=== PATIENT | female | born 1960 | race Caucasian/White ===

== ENCOUNTER 2024-08-23 11:12 | Observation (INO) | payer BC ==
--- NOTE | 2024-08-23 11:54 | ED ---
General Adult HPI - General Chief complaint: Chest Pain Stated complaint: SOB, lightheaded Time Seen by Provider: 08/23/24 11:15 Source: patient, RN notes reviewed, old records reviewed Mode of arrival: wheelchair Limitations: no limitations - History of Present Illness Initial comments: This is a 63-year-old female who presents to the emergency department complaining of chest pain when she was working outside with her . Patient states she was exerting herself quite a bit. Patient states she started experiencing chest pressure and shortness of breath. Patient states she felt lightheaded at 1 point and lay down. Patient states once it subsided she started working hard again trying to get a tree trunk out of the ground. Patient states that this point her chest pain returned as did the shortness of breath. Patient states currently the chest pressure is minimal but it is still there. Patient currently denies any shortness of breath. Patient denies any history of heart disease. Patient denies diabetes. Patient does have high bl ood pressure and high cholesterol. Patient also has a strong family history of heart disease. - Related Data Home Medications Medication Instructions Recorded Confirmed Aspirin EC [Ecotrin Low Dose] 81 mg PO DAILY 08/23/24 08/23/24 Hydroxychloroquine Sulfate 400 mg PO DAILY 08/23/24 08/23/24 [Plaquenil] Levothyroxine (Unknown Dose) 1 tab PO DAILY 08/23/24 08/23/24 Multivitamins, Thera [Multivitamin 1 tab PO HS 08/23/24 08/23/24 (formulary)] Rosuvastatin [Crestor] 10 mg PO HS 08/23/24 08/23/24 hydroCHLOROthiazide [Hydrodiuril] 12.5 mg PO DAILY 08/23/24 08/23/24 ramipriL [Altace] 10 mg PO DAILY 08/23/24 08/23/24 Allergies Allergy/AdvReac Type Severity Reaction Status Date / Time Iodinated Contrast Media Allergy Anaphylaxis Verified 08/23/24 13:23 Sulfa (Sulfonamide Allergy Anaphylaxis Verified 08/23/24 13:23 Antibiotics) sulfamethoxazole Allergy Rash/Hives Verified 08/23/24 13:23 [From Bactrim] trimethoprim [From Bactrim] Allergy Rash/Hives Verified 08/23/24 13:23 Review of Systems ROS Statement: Those systems with pertinent positive or pertinent negative responses have been documented in the HPI. ROS Other: All systems not noted in ROS Statement are negative. Past Medical History Past Medical History: Hypertension, Rheumatoid Arthritis (RA), Thyroid Disorder History of Any Multi-Drug Resistant Organisms: None Reported Past Surgical History: Appendectomy, Hernia Repair Past Psychological History: No Psychological Hx Reported Smoking Status: Never smoker Past Alcohol Use History: None Reported Past Drug Use History: None Reported General Exam - General Exam Comments Initial Comments: GENERAL: Patient is well-developed and well-nourished. Patient is nontoxic and well- hydrated and is in mild distress. ENT: Neck is soft and supple. No significant lymphadenopathy is noted. Oropharynx is clear. Moist mucous membranes. Neck has full range of motion without eliciting any pain. EYES: The sclera were anicteric and conjunctiva were pink and moist. Extraocular movements were intact and pupils were equal round and reactive to light. Eyelids were unremarkable. PULMONARY: Unlabored respirations. Good breath sounds bilaterally. No audible rales rhonchi or wheezing was noted. CARDIOVASCULAR: There is a regular rate and rhythm without any murmurs gallops or rubs. ABDOMEN: Soft and nontender with normal bowel sounds. SKIN: Skin is clear with no lesions or rashes and otherwise unremarkable. NEUROLOGIC: Patient is alert and oriented x3. Cranial nerves II through XII are grossly intact. Motor and sensory are also intact. Normal speech, volume and content. Symmetrical smile. MUSCULOSKELETAL: Normal extremities with adequate strength and full range of motion. No lower extremity swelling or edema. No calf tenderness. LYMPHATICS: No significant lymphadenopathy is noted PSYCHIATRIC: Normal psychiatric evaluation. Limitations: no limitations Course Vital Signs 08/23/24 08/23/24 08/23/24 11:14 11:34 12:45 Temperature 97.9 F Pulse Rate 101 H 95 90 Respiratory 18 16 16 Rate Blood Pressure 114/69 118/88 123/60 O2 Sat by Pulse 100 99 98 Oximetry Medical Decision Making - Medical Decision Making EKG is interpreted by myself. EKG shows a sinus rhythm at 94 bpm HI interval is 163 QRS is 101 QT interval is 362 QTc is 414. Patient's EKG shows no ST segment elevation. Was pt. sent in by a medical professional or institution (, PA, LEATHER CURRIER, urgent care, hospital, or retirement...) When possible be specific @ -No Did you speak to anyone other than the patient for history (EMS, parent, family, police, friend...)? What history was obtained from this source @ -No Did you review nursing and triage notes (agree or disagree)? Why? @ -I reviewed and agree with nursing and triage notes Were old charts reviewed (outside hosp., previous admission, EMS record, old EKG, old radiological studies, urgent care reports/EKG's, retirement records)? Report findings @ -No old charts were reviewed Differential Diagnosis? @ -Differential Chest Pain: Stable Angina, Unstable Angina, STEMI, NSTEMI Aortic Dissection, Pneumothorax, Musculoskeletal, Esophageal Spasm GERD, Cholecystitis, Pancreatitis, Zoster, this is not meant to be an all-inclusive list. EKG interpreted by me (3pts min.). @ -As above X-rays interpreted by me (1pt min.). @ -Chest x-ray shows no acute abnormality CT interpreted by me (1pt min.). @ -None done U/S interpreted by me (1pt. min.). @ -None done What testing was considered but not performed or refused? (CT, X-rays, U/S, labs)? Why? @ -None What meds were considered but not given or refused? Why? @ -None Did you discuss the management of the patient with other professionals (professionals i.e. , PA, LEATHER CURRIER, lab, RT, psych nurse, medical social worker, practice performance manager, teacher, career services officer, cyanide case hardener)? Give summary @ -I spoke with the significant hospitalist and he agreed to admit the patient with the patient recommending orders Was smoking cessation discussed for >3mins.? @ -No Was critical care preformed (if so, how long)? @ -No Were there social determinants of health that impacted care today? How? (Homelessness, low income, unemployed, alcoholism, drug addiction, transportation, low edu. Level, literacy, decrease access to med. care, [facility], rehab)? @ -No Was there de-escalation of care discussed even if they declined (Discuss DNR or withdrawal of care, Hospice)? DNR status @ -No What co-morbidities impacted this encounter? (DM, HTN, Smoking, COPD, CAD, Cancer, CVA, ARF, Chemo, Hep., AIDS, mental health diagnosis, sleep apnea, morbid obesity)? @ -None Was patient admitted / discharged? Hospital course, mention meds given and route, prescriptions, significant lab abnormalities, going to OR and other pertinent info. @ -Patient had some residual chest pain on arrival to the emergency department. Patient was given Nitropaste and it took her pain completely away. Patient will be admitted for acute coronary artery syndrome. Patient will be admitted to [facility] with a cardiology consult Undiagnosed new problem with uncertain prognosis? @ -No Drug Therapy requiring intensive monitoring for toxicity (Heparin, Nitro, Insulin, Cardizem)? @ -No Were any procedures done? @ -No Diagnosis/symptom? @ -Chest Acute, or Chronic, or Acute on Chronic? @ -Default Uncomplicated (without systemic symptoms) or Complicated (systemic symptoms)? @ -Complicated Side effects of treatment? @ -No Exacerbation, Progression, or Severe Exacerbation? @ -No Poses a threat to life or bodily function? How? (Chest pain, USA, MD, pneumonia, PE, COPD, DKA, ARF, appy, cholecystitis, CVA, Diverticulitis, Homicidal, Natty cidal, threat to staff... and all critical care pts) @ -Yes this can lead to an MD and endorgan dysfunction - Lab Data Result diagrams: 08/23/24 12:26 08/23/24 12:26 Lab Results 08/23/24 08/23/24 08/23/24 Range/Units 12:26 12:26 12:26 WBC 9.46 (4.50-10.00) 10*3/uL RBC 5.19 (4.10-5.20) 10*6/uL Hgb 15.5 H (12.0-15.0) g/dL Hct 44.3 (37.2-46.3) % MCV 85.4 (80.0-97.0) fL MCH 29.9 (27.0-32.0) pg MCHC 35.0 (32.0-37.0) g/dL Plt Count 224 (140-440) 10*3/uL MPV 9.9 (9.5-12.2) fL Immature Gran % (Auto) 0.3 % Neutrophils % 75.4 % Lymphocytes % 15.1 % Monocytes % 7.7 % Eosinophils % 0.8 % Basophils % 0.7 % Immature Gran # 0.03 (0.00-0.04) 10*3/uL Neutrophils # 7.12 (1.80-7.70) 10*3/uL Lymphocytes # 1.43 (0.90-5.00) 10*3/uL Monocytes # 0.73 (0.20-1.00) 10*3/uL Eosinophils # 0.08 (0.04-0.35) 10*3/uL Basophils # 0.07 (0.00-0.10) 10*3/uL PT 10.4 (10.0-12.5) sec INR 0.9 (<1.2) APTT 22.6 (22.0-30.0) sec Sodium 142 (137-145) mmol/L Potassium 4.2 (3.5-5.1) mmol/L Chloride 103 (98-107) mmol/L Carbon Dioxide 25 (22-30) mmol/L Anion Gap 14 mmol/L BUN 23 H (7-17) mg/dL Creatinine 1.31 H (0.52-1.04) mg/dL Est GFR (CKD-EPI)AfAm 50 (>60 ml/min/1.73 sqM) Est GFR (CKD-EPI)NonAf 43 (>60 ml/min/1.73 sqM) Glucose 97 (74-99) mg/dL Calcium 10.8 H (8.4-10.2) mg/dL Magnesium 2.1 (1.6-2.3) mg/dL Total Bilirubin 2.0 H (0.2-1.3) mg/dL AST 38 H (14-36) U/L ALT 39 H (4-34) U/L Alkaline Phosphatase 56 (38-126) U/L Troponin I (0.000-0.034) ng/mL Total Protein 7.9 (6.3-8.2) g/dL Albumin 5.1 H (3.5-5.0) g/dL 08/23/24 Range/Units 12:26 WBC (4.50-10.00) 10*3/uL RBC (4.10-5.20) 10*6/uL Hgb (12.0-15.0) g/dL Hct (37.2-46.3) % MCV (80.0-97.0) fL MCH (27.0-32.0) pg MCHC (32.0-37.0) g/dL Plt Count (140-440) 10*3/uL MPV (9.5-12.2) fL Immature Gran % (Auto) % Neutrophils % % Lymphocytes % % Monocytes % % Eosinophils % % Basophils % % Immature Gran # (0.00-0.04) 10*3/uL Neutrophils # (1.80-7.70) 10*3/uL Lymphocytes # (0.90-5.00) 10*3/uL Monocytes # (0.20-1.00) 10*3/uL Eosinophils # (0.04-0.35) 10*3/uL Basophils # (0.00-0.10) 10*3/uL PT (10.0-12.5) sec INR (<1.2) APTT (22.0-30.0) sec Sodium (137-145) mmol/L Potassium (3.5-5.1) mmol/L Chloride (98-107) mmol/L Carbon Dioxide (22-30) mmol/L Anion Gap mmol/L BUN (7-17) mg/dL Creatinine (0.52-1.04) mg/dL Est GFR (CKD-EPI)AfAm (>60 ml/min/1.73 sqM) Est GFR (CKD-EPI)NonAf (>60 ml/min/1.73 sqM) Glucose (74-99) mg/dL Calcium (8.4-10.2) mg/dL Magnesium (1.6-2.3) mg/dL Total Bilirubin (0.2-1.3) mg/dL AST (14-36) U/L ALT (4-34) U/L Alkaline Phosphatase (38-126) U/L Troponin I <0.012 (0.000-0.034) ng/mL Total Protein (6.3-8.2) g/dL Albumin (3.5-5.0) g/dL Disposition Clinical Impression: Chest pain Disposition: ADMITTED IP TO THIS HOSP Referrals: Everton Flores MD [Primary Care Provider] - 1-2 days Time of Disposition: 13:50
[2024-08-23 12:33] LABS: Basophils # (A) 0.07 10*3/uL (0.00-0.10); Basophils % (A) 0.7 %; Eosinophils # (A) 0.08 10*3/uL (0.04-0.35); Eosinophils % (A) 0.8 %; HCT 44.3 % (37.2-46.3); HGB 15.5 g/dL (12.0-15.0); Lymphocytes # (A) 1.43 10*3/uL (0.90-5.00); Lymphocytes % (A) 15.1 %; MCH 29.9 pg (27.0-32.0); MCHC 35.0 g/dL (32.0-37.0); MCV 85.4 fL (80.0-97.0); Monocytes # (A) 0.73 10*3/uL (0.20-1.00); Monocytes % (A) 7.7 %; Neutrophils # (A) 7.12 10*3/uL (1.80-7.70); Neutrophils % (A) 75.4 %; Platelet Count 224 10*3/uL (140-440); RBC 5.19 10*6/uL (4.10-5.20); RDW 12.5 % (11.5-14.5); WBC 9.46 10*3/uL (4.50-10.00)
[2024-08-23 12:42] LABS: INR 0.9 (<1.2); Partial Thromboplastin Time 22.6 sec (22.0-30.0); Prothrombin Time 10.4 sec (10.0-12.5)
--- NOTE | 2024-08-23 12:42 | XR ---
Chest, 2 view. CLINICAL INDICATION: Female, 63 years old with history of Chest Pain COMPARISON: None TECHNIQUE: PA and lateral views the chest are obtained. FINDINGS: The lungs are clear and there is no consolidative or interstitial opacity. There is no pleural effusion or pneumothorax. The heart, pulmonary vasculature, mediastinum and josephine appear normal. The osseous structures are intact. IMPRESSION: No significant abnormality seen. No acute cardiopulmonary disease. [facility], , 08/23/2024 12:39 PM
[2024-08-23 12:44] LABS: ALT 39 U/L (4-34); AST 38 U/L (14-36); African American GFR (CKD) 50 (>60 ml/min/1.73 sqM); Albumin 5.1 g/dL (3.5-5.0); Alkaline Phosphatase 56 U/L (38-126); Anion Gap 14 mmol/L; Blood Urea Nitrogen 23 mg/dL (7-17); Calcium 10.8 mg/dL (8.4-10.2); Carbon Dioxide 25 mmol/L (22-30); Chloride 103 mmol/L (98-107); Glucose 97 mg/dL (74-99); Magnesium 2.1 mg/dL (1.6-2.3); Non-African American GFR(CKD) 43 (>60 ml/min/1.73 sqM); Potassium 4.2 mmol/L (3.5-5.1); Sodium 142 mmol/L (137-145); Total Protein 7.9 g/dL (6.3-8.2)
[2024-08-23] MEDS: ASPIRIN 81 MG PO STA (12:46)
[2024-08-23] MEDS: NITROGLYCERIN OINT 1 INCH/GM PACKET TOPICAL STA (12:47)
[2024-08-23] MEDS ORDERED: NITROGLYCERIN SL TABS 0.4 MG TAB SUBLINGUAL PRN (13:51)
[2024-08-23] MEDS ORDERED: MELATONIN 5 MG TABLET PO PRN (15:04)
[2024-08-23] MEDS ORDERED: MAG HYDROX/AL HYDROX/SIMETH 30 ML CUP PO PRN (15:05)
[2024-08-23] MEDS ORDERED: NALOXONE 0.4 MG/ML 1 ML VIAL IV PRN (15:05)
[2024-08-23] MEDS ORDERED: ACETAMINOPHEN TAB 325 MG TAB PO PRN (15:05)
--- NOTE | 2024-08-23 15:13 | P.HPIM ---
History of Present Illness H&P Date: 08/23/24 History of present illness; patient is a 63-year-old lady with past medical history significant for hypertension, hyperlipidemia who presented to the ER because of chest pain. Patient stated that she was all right this afternoon when while working with her in the yard visit for trying to trim some trees when while she was trying to lift some branches she experienced chest pain that was central location, pressure-like, nonradiating, no aggravating or relieving factor associated chest pain. Patient took some time to rest and the chest pain went away. After a few minutes when she tried to lift another branch she started experiencing again chest pain, this time it was more severe and persistent, patient became concerned decided to come to the ER There was no complaint of orthopnea or PND. There was no complaint of shortness of breath at that time. There was no episode of diaphoresis during this episode of chest pain. Patient denies any palpitation. Denies any nausea, vomiting abdominal pain. Patient denies any complaint of dizziness. There is no complaint of headache. Initial lab work done in the ER showed WBC 9.46, hemoglobin 15.5, platelet count 224, sodium 142, potassium 4.2, BUN 23, creatinine 1.31 calcium 10.8, bilirubin 2, AST 38, ALT 39, EKG done in the ER showed heart rate of 94, no ST segment elevation or depression seen, no T-wave inversions seen. Chest x-ray done in the ER showed no acute cardiopulmonary process Patient admitted to internal medicine service REVIEW OF SYSTEMS: CONSTITUTIONAL: No fever, no malaise, no fatigue. HEENT: No recent visual problems or hearing problems. Denied any sore throat. CARDIOVASCULAR: As mentioned above PULMONARY: As mentioned above GASTROINTESTINAL: No diarrhea, no nausea, no vomiting, no abdominal pain. NEUROLOGICAL: No headaches, no weakness, no numbness. HEMATOLOGICAL: Denies any bleeding or petechiae. GENITOURINARY: Denies any burning micturition, frequency, or urgency. MUSCULOSKELETAL/RHEUMATOLOGICAL: Denies any joint pain, swelling, or any muscle pain. ENDOCRINE: Denies any polyuria or polydipsia. The rest of the 14-point review of systems is negative. PHYSICAL EXAMINATION: GENERAL: The patient is alert and oriented x3, not in any acute distress. Well developed, well nourished. HEENT: Pupils are round and equally reacting to light. EOMI. No scleral icterus. No conjunctival pallor. Normocephalic, atraumatic. No pharyngeal erythema. No thyromegaly. CARDIOVASCULAR: S1 and S2 present. No murmurs, rubs, or gallops. PULMONARY: Chest is clear to auscultation, no wheezing or crackles. ABDOMEN: Soft, nontender, nondistended, normoactive bowel sounds. No palpable organomegaly. MUSCULOSKELETAL: No joint swelling or deformity. EXTREMITIES: No cyanosis, clubbing, or pedal edema. NEUROLOGICAL: Gross neurological examination did not reveal any focal deficits. SKIN: No rashes. Assessment and plan Chest pain, rule out acute coronary syndrome FRED Acute transaminitis Hyperbilirubinemia History of hypertension History of hyperlipidemia History of hypothyroidism Monitor vital signs Monitor CBC Monitor CMP Continue telemetry monitoring Serial troponin Ordered D-dimer Ordered ultrasound abdomen Ordered 2D echo Start aspirin Resume home meds Consult cardiology Labs and medication were reviewed.. Continue same treatment. Continue with symptomatic treatment. Resume home medication. Monitor labs and vitals. DVT and GI prophylaxis. Further recommendations as per clinical course of the patient Dictation was produced using [employer] dictation software. please excuse any grammatical, word or spelling errors. Past Medical History Past Medical History: Hypertension, Rheumatoid Arthritis (RA), Thyroid Disorder History of Any Multi-Drug Resistant Organisms: None Reported Past Surgical History: Appendectomy, Hernia Repair Past Psychological History: No Psychological Hx Reported Smoking Status: Never smoker Past Alcohol Use History: None Reported Past Drug Use History: None Reported Medications and Allergies Home Medications Medication Instructions Recorded Confirmed Type Aspirin EC [Ecotrin Low Dose] 81 mg PO DAILY 08/23/24 08/23/24 History Hydroxychloroquine Sulfate 400 mg PO DAILY 08/23/24 08/23/24 History [Plaquenil] Levothyroxine (Unknown Dose) 1 tab PO DAILY 08/23/24 08/23/24 History Multivitamins, Thera [Multivitamin 1 tab PO HS 08/23/24 08/23/24 History (formulary)] Rosuvastatin [Crestor] 10 mg PO HS 08/23/24 08/23/24 History hydroCHLOROthiazide [Hydrodiuril] 12.5 mg PO DAILY 08/23/24 08/23/24 History ramipriL [Altace] 10 mg PO DAILY 08/23/24 08/23/24 History Allergies Allergy/AdvReac Type Severity Reaction Status Date / Time Iodinated Contrast Media Allergy Anaphylaxis Verified 08/23/24 13:23 Sulfa (Sulfonamide Allergy Anaphylaxis Verified 08/23/24 13:23 Antibiotics) sulfamethoxazole Allergy Rash/Hives Verified 08/23/24 13:23 [From Bactrim] trimethoprim [From Bactrim] Allergy Rash/Hives Verified 08/23/24 13:23 Physical Exam Vitals: Vital Signs Temp Pulse Resp BP Pulse Ox 08/23/24 14:25 98.5 F 75 17 122/82 99 08/23/24 12:45 90 16 123/60 98 08/23/24 11:34 95 16 118/88 99 08/23/24 11:14 97.9 F 101 H 18 114/69 100 Intake and Output 08/23/24 08/23/24 08/23/24 06:59 14:59 22:59 Other: Weight 78.471 kg Results CBC & Chem 7: 08/23/24 12:26 08/23/24 12:26 Labs: Abnormal Lab Results - Last 24 Hours (Table) 08/23/24 08/23/24 Range/Units 12:26 12:26 Hgb 15.5 H (12.0-15.0) g/dL BUN 23 H (7-17) mg/dL Creatinine 1.31 H (0.52-1.04) mg/dL Calcium 10.8 H (8.4-10.2) mg/dL Total Bilirubin 2.0 H (0.2-1.3) mg/dL AST 38 H (14-36) U/L ALT 39 H (4-34) U/L Albumin 5.1 H (3.5-5.0) g/dL
[2024-08-23] MEDS ORDERED: MAG HYDROX/AL HYDROX/SIMETH 30 ML CUP PO SCH (18:00)
[2024-08-23] MEDS: NITROGLYCERIN OINT 1 INCH/GM PACKET TOPICAL SCH (19:23)
[2024-08-23] MEDS: ATORVASTATIN 20 MG TAB PO SCH (20:14)
[2024-08-24] MEDS: PANTOPRAZOLE 40 MG TABLET PO SCH (05:57)
[2024-08-24] MEDS: LEVOTHYROXINE 137 MCG TAB PO SCH (05:57)
--- NOTE | 2024-08-24 08:14 | US ---
EXAMINATION TYPE: US abdomen limited DATE OF EXAM: 08/24/2024 COMPARISON: NONE CLINICAL INDICATION: Female, 63 years old with history of Transaminitis, abdominal pain; Transaminiti s, abdominal pain, hx appendectomy TECHNIQUE: Grayscale and color Doppler imaging of the right upper quadrant. FINDINGS: EXAM MEASUREMENTS: Liver Length: 15.9 cm Gallbladder Wall: 0.22 cm CBD: 0.31 cm, color Doppler imaging was utilized to isolate the common bile duct for measurement. Right Kidney: 11.3 x 5.2 x 6.2 cm END TRIMMER NOTES: Exam is limited due to gas Pancreas: Limited visibility of head and tail. No abnormalities seen. Liver: Appears very coarse with increased echogenicity. *Hypoechoic area seen near aric hepatis: 2.8 x 2.0 x 2.2 cm. Gallbladder: Appears anechoic Evidence for sonographic Aguila's sign: No CBD: Appears wnl Right Kidney: *Anechoic area seen lower pole: 1.7 x 1.5 x 1.6 cm. IMPRESSION: 1. Echotexture of the liver suggests fatty infiltration or hepatocellular disease. 2. No hepatomegaly 3. Limited evaluation of the pancreas. 4. Normal gallbladder and biliary tree. 5. Focal hypoechoic area near aric hepatis described above most likely representing an area of focal sparing in a diffusely fatty liver. As a precautionary measure, CT abdomen and pelvis recommended fo r further evaluation of the liver. [facility], , 08/24/2024 8:12 AM
[2024-08-24] MEDS ORDERED: LEVOTHYROXINE PO SCH (09:00)
[2024-08-24] MEDS ORDERED: ASPIRIN 81 MG PO SCH (09:00)
[2024-08-24 09:07] LABS: Cholesterol 128.00 mg/dL (0.00-200.00); HDL Cholesterol 42.60 mg/dL (40.00-60.00); LDL Cholesterol,Calculated 45.4 mg/dL (0.0-131.0); Triglycerides 200.00 mg/dL (0.00-149.00); VLDL Calculation 40.00 mg/dL (5.00-40.00)
[2024-08-24 09:29] LABS: Basophils # (A) 0.06 X 10*3/uL (0.00-0.10); Basophils % (A) 1.0 %; Eosinophils # (A) 0.16 X 10*3/uL (0.04-0.35); Eosinophils % (A) 2.6 %; HCT 39.8 % (37.2-46.3); HGB 13.5 g/dL (12.0-15.0); Immature Grans, Automated 0.20 %; Lymphocytes # (A) 1.82 X 10*3/uL (0.90-5.00); Lymphocytes % (A) 29.0 %; MCH 29.3 pg (27.0-32.0); MCHC 33.9 g/dL (32.0-37.0); MCV 86.5 FL (80.0-97.0); Monocytes # (A) 0.68 X 10*3/uL (0.20-1.00); Monocytes % (A) 10.8 %; NRBC Per 100 WBC 0 X 10*3/uL (0.00-0.01); Neutrophils # (A) 3.54 X 10*3/uL (1.80-7.70); Neutrophils % (A) 56.4 %; Platelet Count 196 X 10*3/uL (140-440); RBC 4.60 X 10*6/uL (4.10-5.20); RDW 12.8 % (11.5-14.5); WBC 6.27 X 10*3/uL (4.50-10.00)
[2024-08-24] MEDS: ASPIRIN 325 MG TAB PO SCH (10:14)
--- NOTE | 2024-08-24 14:00 | P.CRDCN ---
History of Present Illness Consult date: 08/24/24 History of present illness: HISTORY OF PRESENTING ILLNESS: 63-year-old with history of hypertension dyslipidemia presented to the hospital because of substernal chest pressure while working in the yard taking the ground. In ER she received nitro patch which did ease her symptoms. Otherwise she is physically active with no symptoms otherwise on previous physical active situation. No smoking drug marijuana use alcohol use. Father had ND in old age ................... ................................................................................ ........................................... Pertient Vitals: BP 134/81, heart rate 72 bpm Pertient Labs: Hb 13.5, BUN 22, creatinine 1.3, troponins x 3 negative, triglyceride 200, LDL 45 EKG: Normal sinus rhythm with no significant ST changes concerning for ischemia Pertient Imaging: CXR does not show significant congestion or consolidation ............................................................................ .................................................................. REVIEW OF SYSTEMS: 14 point review of system is negative except what is mentioned above in HPI. ..................................... ................................................................................ ......................... PHYSICAL EXAMINATION: Neck: Brisk carotid upstroke, no jugular venous distention. Lungs: Clear to auscultation. Heart: Regular rate and rhythm, S1-S2, , no murmur or rub. Abdomen: Soft nontender, positive bowel sounds. Extremities: No edema, intact distal pulses. Neuro: Alert, oritented, no focal deficits. Detailed neuro exam was not performed. .............................................. ................................................................................ ................ ASSESSMENT: # Atypical chest pain, ACS has been ruled out # Essential hypertension # Dyslipidemia # Hypertriglyceridemia PLAN: Continue aspirin, rosuvastatin She is on HCTZ 12.5, ramipril 10 mg at home. I will add Imdur 15 mg daily as her symptoms did get better with nitro patch in the ER I recommended her to get stress and echocardiogram done however she does not want to stay in the hospital until tomorrow. She understands the risk factors Recommend outpatient follow-up with me for outpatient treadmill echo stress and echo. Charles Barlow MD, FACC, [facility] Past Medical History Past Medical History: Hypertension, Rheumatoid Arthritis (RA), Thyroid Disorder History of Any Multi-Drug Resistant Organisms: None Reported Past Surgical History: Appendectomy, Hernia Repair Additional Past Surgical History / Comment(s): sinus sx Past Psychological History: No Psychological Hx Reported Smoking Status: Never smoker Past Alcohol Use History: None Reported Past Drug Use History: None Reported Medications and Allergies Home Medications Medication Instructions Recorded Confirmed Type Aspirin EC [Ecotrin Low Dose] 81 mg PO DAILY 08/23/24 08/23/24 History Hydroxychloroquine Sulfate 400 mg PO DAILY 08/23/24 08/23/24 History [Plaquenil] Levothyroxine (Unknown Dose) 137 mcg PO DAILY 08/23/24 08/23/24 History Multivitamins, Thera [Multivitamin 1 tab PO HS 08/23/24 08/23/24 History (formulary)] Rosuvastatin [Crestor] 10 mg PO HS 08/23/24 08/23/24 History hydroCHLOROthiazide [Hydrodiuril] 12.5 mg PO DAILY 08/23/24 08/23/24 History ramipriL [Altace] 10 mg PO DAILY 08/23/24 08/23/24 History Allergies Allergy/AdvReac Type Severity Reaction Status Date / Time Iodinated Contrast Media Allergy Anaphylaxis Verified 08/23/24 13:23 Sulfa (Sulfonamide Allergy Anaphylaxis Verified 08/23/24 13:23 Antibiotics) sulfamethoxazole Allergy Rash/Hives Verified 08/23/24 13:23 [From Bactrim] trimethoprim [From Bactrim] Allergy Rash/Hives Verified 08/23/24 13:23 Physical Exam Vitals: Vital Signs Temp Pulse Pulse Pulse Resp BP BP 08/24/24 07:30 98.2 F 72 16 134/81 08/24/24 01:34 85 70 18 08/24/24 00:00 97.7 F 81 18 107/61 08/23/24 20:40 85 70 18 08/23/24 20:00 98.2 F 70 18 138/72 08/23/24 16:09 08/23/24 15:02 98.0 F 85 16 149/69 08/23/24 14:25 98.5 F 75 17 122/82 Pulse Ox 08/24/24 07:30 97 08/24/24 01:34 08/24/24 00:00 97 08/23/24 20:40 08/23/24 20:00 96 08/23/24 16:09 98 08/23/24 15:02 98 08/23/24 14:25 99 Intake and Output 08/23/24 08/24/24 08/24/24 22:59 06:59 14:59 Intake Total 240 Balance 240 Intake: Oral 240 Other: # Voids 1 2 Weight 78.471 kg Results 08/24/24 05:26 08/23/24 12:26 Cardiac Enzymes 08/23/24 08/23/24 Range/Units 15:15 17:57 Troponin I <0.012 <0.012 (0.000-0.034) ng/mL Lipids 08/24/24 Range/Units 05:26 Triglycerides 200.00 H (0.00-149.00) mg/dL Cholesterol 128.00 (0.00-200.00) mg/dL HDL Cholesterol 42.60 (40.00-60.00) mg/dL Cholesterol/HDL Ratio 3.00 Ratio CBC 08/24/24 Range/Units 05:26 WBC 6.27 (4.50-10.00) X 10*3/uL RBC 4.60 (4.10-5.20) X 10*6/uL Hgb 13.5 (12.0-15.0) g/dL Hct 39.8 (37.2-46.3) % Plt Count 196 (140-440) X 10*3/uL Current Medications Generic Name Dose Route Start Last Admin Trade Name Freq PRN Reason Stop Dose Admin Acetaminophen 650 mg 08/23/24 15:05 Acetaminophen Tab 325 Mg Tab PO Q6HR PRN Mild Pain or Fever > 100.5 Al Hydroxide/Mg Hydroxide 15 ml 08/23/24 15:05 Mag Hydrox/Al Hydrox/Simeth 30 Ml Cup PO Q6HR PRN Indigestion Aspirin 325 mg 08/24/24 09:00 08/24/24 10:14 Aspirin 325 Mg Tab PO 325 mg DAILY CARLA Administration Atorvastatin Calcium 20 mg 08/23/24 21:00 08/23/24 20:14 Atorvastatin 20 Mg Tab PO 20 mg HS CARLA Administration Hydrochlorothiazide 12.5 mg 08/24/24 09:00 08/24/24 10:14 Hydrochlorothiazide 12.5 Mg Cap PO 12.5 mg DAILY CARLA Administration Levothyroxine Sodium 137 mcg 08/24/24 06:30 08/24/24 05:57 Levothyroxine 137 Mcg Tab PO 137 mcg DAILY@0630 CARLA Administration Lisinopril 40 mg 07/13/25 09:00 08/24/24 10:14 Lisinopril 20 Mg Tab PO 40 mg DAILY CARLA Administration Melatonin 5 mg 08/23/24 15:04 Melatonin 5 Mg Tablet PO HS PRN Insomnia Naloxone HCl 0.2 mg 08/23/24 15:05 Naloxone 0.4 Mg/Ml 1 Ml Vial IV Q2M PRN Opioid Reversal Nitroglycerin 0.4 mg 08/23/24 13:51 Nitroglycerin Sl Tabs 0.4 Mg Tab SUBLINGUAL Q5M PRN Chest Pain Nitroglycerin 1 inch 08/23/24 18:00 08/24/24 13:25 Nitroglycerin Oint 1 Inch/Gm Packet TOPICAL Not Given Q6HR [facility] Pantoprazole Sodium 40 mg 08/24/24 07:30 08/24/24 05:57 Pantoprazole 40 Mg Tablet PO 40 mg [id number] [facility] Administration Intake and Output 08/23/24 08/24/24 08/24/24 22:59 06:59 14:59 Intake Total 240 Balance 240 Intake: Oral 240 Other: # Voids 1 2 Weight 78.471 kg 08/24/24 05:26 08/23/24 12:26
[2024-08-24 14:31] VITALS: BP 120/71; PULSE 75; RESP 17; TEMP 98.5
--- NOTE | 2024-08-24 15:21 | P.PN ---
Subjective Progress Note Date: 08/24/24 63-year-old lady with past medical history significant for hypertension, hyperlipidemia who presented to the ER because of chest pain. Patient stated that she was all right this afternoon when while working with her in the yard visit for trying to trim some trees when while she was trying to lift some branches she experienced chest pain that was central location, pressure-like, nonradiating, no aggravating or relieving factor associated chest pain. Patient took some time to rest and the chest pain went away. After a few minutes when she tried to lift another branch she started experiencing again chest pain, this time it was more severe and persistent, patient became concerned decided to come to the ER There was no complaint of orthopnea or PND. There was no complaint of shortness of breath at that time. There was no episode of diaphoresis during this episode of chest pain. Patient denies any palpitation. Denies any nausea, vomiting abdominal pain. Patient denies any complaint of dizziness. There is no complaint of headache. Initial lab work done in the ER showed WBC 9.46, hemoglobin 15.5, platelet count 224, sodium 142, potassium 4.2, BUN 23, creatinine 1.31 calcium 10.8, bilirubin 2, AST 38, ALT 39, EKG done in the ER showed heart rate of 94, no ST segment elevation or depression seen, no T-wave inversions seen. Chest x-ray done in the ER showed no acute cardiopulmonary process Patient admitted to internal medicine service 08/24. Patient seen and examined. Chest pain has resolved. REVIEW OF SYSTEMS: CONSTITUTIONAL: No fever, no malaise,. CARDIOVASCULAR: No chest pain, no palpitations, no syncope. PULMONARY: No shortness of breath, no cough, GASTROINTESTINAL: No diarrhea, no nausea, no vomiting, no abdominal pain. NEUROLOGICAL: No headaches, no weakness, PHYSICAL EXAMINATION: GENERAL: The patient is alert and oriented x3, not in any acute distress. Well developed, well nourished. HEENT: Pupils are round and equally reacting to light. EOMI. No scleral icterus. No conjunctival pallor. Normocephalic, atraumatic. No pharyngeal erythema. No thyromegaly. CARDIOVASCULAR: S1 and S2 present. No murmurs, rubs, or gallops. PULMONARY: Chest is clear to auscultation, no wheezing or crackles. ABDOMEN: Soft, nontender, nondistended, normoactive bowel sounds. No palpable organomegaly. MUSCULOSKELETAL: No joint swelling or deformity. EXTREMITIES: No cyanosis, clubbing, or pedal edema. NEUROLOGICAL: Gross neurological examination did not reveal any focal deficits. SKIN: No rashes. Assessment and plan Chest pain, rule out acute coronary syndrome FRED Acute transaminitis Hyperbilirubinemia History of hypertension History of hyperlipidemia History of hypothyroidism Monitor vital signs Monitor CBC Monitor CMP Continue telemetry monitoring Serial troponin D-dimer elevated, ordered VQ scan because of patient history of contrast allergy Continue aspirin Continue Lipitor Cardiology following Labs and medication were reviewed.. Continue same treatment. Continue with symptomatic treatment. Resume home medication. Monitor labs and vitals. DVT and GI prophylaxis. Further recommendations as per clinical course of the patient Dictation was produced using [employer] dictation software. please excuse any grammatical, word or spelling errors. Objective - Vital Signs Vital signs: Vital Signs Temp 98.2 F 08/24/24 07:30 Pulse 72 08/24/24 07:30 Resp 16 08/24/24 07:30 BP 134/81 08/24/24 07:30 Pulse Ox 97 08/24/24 07:30 FiO2 Intake & Output 08/23/24 08/24/24 08/24/24 18:59 06:59 18:59 Intake Total 240 Balance 240 Weight 78.471 kg Intake: Oral 240 Other: # Voids 2 - Labs CBC & Chem 7: 08/24/24 05:26 08/23/24 12:26 Labs: Abnormal Lab Results - Last 24 Hours (Table) 08/23/24 08/23/24 08/23/24 Range/Units 12:26 12:26 15:15 Hgb 15.5 H (12.0-15.0) g/dL D-Dimer 0.63 H (<0.60) mg/L FEU BUN 23 H (7-17) mg/dL Creatinine 1.31 H (0.52-1.04) mg/dL Calcium 10.8 H (8.4-10.2) mg/dL Total Bilirubin 2.0 H (0.2-1.3) mg/dL AST 38 H (14-36) U/L ALT 39 H (4-34) U/L Albumin 5.1 H (3.5-5.0) g/dL Triglycerides (0.00-149.00) mg/dL 08/24/24 Range/Units 05:26 Hgb (12.0-15.0) g/dL D-Dimer (<0.60) mg/L FEU BUN (7-17) mg/dL Creatinine (0.52-1.04) mg/dL Calcium (8.4-10.2) mg/dL Total Bilirubin (0.2-1.3) mg/dL AST (14-36) U/L ALT (4-34) U/L Albumin (3.5-5.0) g/dL Triglycerides 200.00 H (0.00-149.00) mg/dL
--- NOTE | 2024-08-24 17:42 | NM ---
EXAMINATION TYPE: NM pul vent and perfuse DATE OF EXAM: 08/24/2024 CLINICAL INDICATION: Female, 63 years old with history of dyspnea; COMPARISON: NONE chest radiograph TECHNIQUE: Utilizing inhalation of 39.3 mCi Tc 99m DTPA aerosol and intravenous injection of 5.1 mCi of Tc 99m MAA, ventilation and perfusion images are acquired post injection in multiple projections. FINDINGS: Normal radiotracer distribution is noted in the lungs. There is no evidence of mismatched defects. Focal radiotracer noted on the left lung base anteriorly thought to represent artifact. IMPRESSION: 1. No mismatched defects to suggest pulmonary embolus by PIOPED criteria. 2. Focal radiotracer noted on the left lung base anteriorly thought to represent artifact. Consider CT imaging for further evaluation. [facility], , 08/24/2024 5:40 PM
--- NOTE | 2024-08-26 15:05 | P.DS ---
Providers Date of admission: 08/23/24 13:51 Expected date of discharge: 08/24/24 Attending physician: Cayetano Richardson Consults: 08/23/24 13:51 Consult Physician Urgent Consulting Provider: [facility] Consult Reason/Comments: Chest pain Do you want consulting provider notified?: Yes Primary care physician: Everton Flores Hospital Course: Discharge diagnoses; Chest pain, ACS ruled out FRED Acute transaminitis Hyperbilirubinemia History of hypertension History of hyperlipidemia History of hypothyroidism Hospital course; 63-year-old lady with past medical history significant for hypertension, hyperlipidemia who presented to the ER because of chest pain. Patient stated that she was all right this afternoon when while working with her in the yard visit for trying to trim some trees when while she was trying to lift some branches she experienced chest pain that was central location, pressure-like, nonradiating, no aggravating or relieving factor associated chest pain. Patient took some time to rest and the chest pain went away. After a few minutes when she tried to lift another branch she started experiencing again chest pain, this time it was more severe and persistent, patient became concerned decided to come to the ER There was no complaint of orthopnea or PND. There was no complaint of shortness of breath at that time. There was no episode of diaphoresis during this episode of chest pain. Patient denies any palpitation. Denies any nausea, vomiting abdominal pain. Patient denies any complaint of dizziness. There is no complaint of headache. Initial lab work done in the ER showed WBC 9.46, hemoglobin 15.5, platelet count 224, sodium 142, potassium 4.2, BUN 23, creatinine 1.31 calcium 10.8, bilirubin 2, AST 38, ALT 39, EKG done in the ER showed heart rate of 94, no ST segment elevation or depression seen, no T-wave inversions seen. Chest x-ray done in the ER showed no acute cardiopulmonary process Patient admitted to internal medicine service 08/24. Patient seen and examined. Chest pain has resolved. Cardiology recommended doing stress test and 2D echo, patient did not want to stay in the hospital for that, wanted outpatient stress test, cardiology agreed, patient was discharged in stable condition PHYSICAL EXAMINATION: GENERAL: The patient is alert and oriented x3, not in any acute distress. Well developed, well nourished. HEENT: Pupils are round and equally reacting to light. EOMI. No scleral icterus. No conjunctival pallor. Normocephalic, atraumatic. No pharyngeal erythema. No thyromegaly. CARDIOVASCULAR: S1 and S2 present. No murmurs, rubs, or gallops. PULMONARY: Chest is clear to auscultation, no wheezing or crackles. ABDOMEN: Soft, nontender, nondistended, normoactive bowel sounds. No palpable organomegaly. MUSCULOSKELETAL: No joint swelling or deformity. EXTREMITIES: No cyanosis, clubbing, or pedal edema. NEUROLOGICAL: Gross neurological examination did not reveal any focal deficits. SKIN: No rashes. Dictation was produced using [employer] dictation software. please excuse any grammatical, word or spelling errors. Plan - Discharge Summary Discharge Rx Participant: Yes New Discharge Prescriptions: Continue Multivitamins, Thera [Multivitamin (formulary)] 1 tab PO HS Aspirin EC [Ecotrin Low Dose] 81 mg PO DAILY ramipriL [Altace] 10 mg PO DAILY Levothyroxine (Unknown Dose) 137 mcg PO DAILY Rosuvastatin [Crestor] 10 mg PO HS hydroCHLOROthiazide [Hydrodiuril] 12.5 mg PO DAILY Hydroxychloroquine Sulfate [Plaquenil] 400 mg PO DAILY Discharge Medication List Aspirin EC [Ecotrin Low Dose] 81 mg PO DAILY 08/23/24 [History] Hydroxychloroquine Sulfate [Plaquenil] 400 mg PO DAILY 08/23/24 [History] Levothyroxine (Unknown Dose) 137 mcg PO DAILY 08/23/24 [History] Multivitamins, Thera [Multivitamin (formulary)] 1 tab PO HS 08/23/24 [History] Rosuvastatin [Crestor] 10 mg PO HS 08/23/24 [History] hydroCHLOROthiazide [Hydrodiuril] 12.5 mg PO DAILY 08/23/24 [History] ramipriL [Altace] 10 mg PO DAILY 08/23/24 [History] Follow up Appointment(s)/Referral(s): Charles Barlow MD [Medical Doctor] - As Needed Everton Flores MD [Primary Care Provider] - 1-2 days Discharge Disposition: HOME SELF-CARE
== END 2024-08-24 17:55 | disposition home or self-care (01) ==
LOC: EC 11:12 → 6NMEDSUR 13:51
PROVIDERS: ADMIT Hospitalist; ATTEND Hospitalist
DX: R07.89 Other chest pain (principal); N17.9 Acute kidney failure, unspecified; E78.1 Pure hyperglyceridemia; I10 Essential (primary) hypertension; R74.01 Elevation of levels of liver transaminase levels; E03.9 Hypothyroidism, unspecified; R17 Unspecified jaundice; R79.89 Other specified abnormal findings of blood chemistry; E78.00 Pure hypercholesterolemia, unspecified; Z79.82 Long term (current) use of aspirin; Z79.890 Hormone replacement therapy; Z79.899 Other long term (current) drug therapy; Z88.2 Allergy status to sulfonamides; Z88.1 Allergy status to other antibiotic agents; Z91.041 Radiographic dye allergy status; Z82.49 Family history of ischemic heart disease and other diseases of the circulatory system
CPT/HCPCS: 99285; 36415; 93005 ×2; 85379; 83880; 80061; 80053; 83735; 84484; 85025 ×2; 85610; 85730; 83036; 71046; 76705; 78582; G0378 ×2; A9540; A9567